=== PATIENT | female | born 2000 | race American Indian/Alaskan Native ===

== ENCOUNTER 2020-10-30 19:22 | Emergency (ER) | payer OTHER ==
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
== END 2020-10-30 20:14 | disposition home or self-care (01) ==
LOC: ED 19:22
DX: R51.9 Headache, unspecified (principal); Z79.899 Other long term (current) drug therapy; V49.49XA Driver injured in collision with other motor vehicles in traffic accident, initial encounter; Y92.410 Unspecified street and highway as the place of occurrence of the external cause; Y93.89 Activity, other specified; Y99.8 Other external cause status
CPT/HCPCS: 99281